=== PATIENT | male | born 1985 | race Caucasian/White ===

== ENCOUNTER 2016-08-01 13:44 | Emergency (ER) | payer SELFPAY ==
[~2016-08-01] VITALS: Ht 190.5 cm; Wt 86.4 kg
[2016-08-01] MEDS ORDERED: B COMPLETE1 EACH PO (14:20)
[2016-08-01 15:56] VITALS: BP 122/79
== END 2016-08-01 15:57 | disposition home or self-care (01) ==
LOC: EME 13:44
DX: F20.0 Paranoid schizophrenia (principal); F17.200 Nicotine dependence, unspecified, uncomplicated; F11.10 Opioid abuse, uncomplicated; F14.10 Cocaine abuse, uncomplicated
CPT/HCPCS: 80048; 85027; 90839; 99281; 99284; G0480